=== PATIENT | female | born 1975 | race Caucasian/White ===

== ENCOUNTER 2025-05-25 16:02 | Outpatient (CLI) | payer OTHER, MEDICAID, SELFPAY ==
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
== END 2025-05-25 16:03 | disposition home or self-care (01) ==
LOC: RAD 16:03
PROVIDERS: PCP Nurse Practitioner; Visit Provider Nurse Practitioner
DX: M25.571 Pain in right ankle and joints of right foot (principal); S99.911A Unspecified injury of right ankle, initial encounter; V89.2XXA Person injured in unspecified motor-vehicle accident, traffic, initial encounter; R07.89 Other chest pain; M77.31 Calcaneal spur, right foot; M19.071 Primary osteoarthritis, right ankle and foot; M70.971 Unspecified soft tissue disorder related to use, overuse and pressure, right ankle and foot
CPT/HCPCS: 71101; 73610

== ENCOUNTER 2025-05-31 15:27 | Outpatient (CLI) | payer OTHER, MEDICAID, SELFPAY | END 2025-05-31 15:28 | disposition home or self-care (01) | LOC: SPT 15:28 | PROVIDERS: PCP Nurse Practitioner; Visit Provider Podiatrist Foot & Ankle Surgery | DX: Z46.89 Encounter for fitting and adjustment of other specified devices (principal); M79.671 Pain in right foot | CPT/HCPCS: L4361 ==

== ENCOUNTER 2025-06-07 15:57 | Outpatient (CLI) | payer OTHER, MEDICAID, SELFPAY ==
--- NOTE | 2025-06-07 16:30 | CT_ITS ---
WS: [id number] CT RIGHT ANKLE, NONCONTRAST HISTORY: rule out stress fracture Technique: All CT scans at [facility] use at least one of these dose optimization techniques: automated exposure control; mA and/or kV adjustment per patient size (includes targeted exams where dose is matched to clinical indication); or iterative reconstruction. DLP: 134.01 mGy.cm COMPARISON: Radiograph 05/25/2025 No acute fractures identified at the ankle. Normal alignment of the tibiotalar joint. No osteochondral lesion along the talar dome. No widening of the ankle mortise. Interosseous distance is normal. Moderate size enthesopathy at the distal Achilles tendon attachment. There is also some blurring at the plantar aponeurosis measuring up to 9.4 mm. Subtalar joint appears appropriate. Degenerative osteophytosis in the midfoot. Normal tarsometatarsal alignment. No joint effusion or soft tissue edema. CT/CT ankle RT wo con* [id number] IMPRESSION: 1. No acute RIGHT ankle fracture. 2. Achilles enthesopathy. 3. Focal osteophyte at the plantar aponeurosis measures 9.4 mm. 4. 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 5. No malalignment or edema.
== END 2025-06-07 15:58 | disposition home or self-care (01) ==
LOC: RAD 15:57
PROVIDERS: PCP Nurse Practitioner; Visit Provider Podiatrist Foot & Ankle Surgery
DX: M79.671 Pain in right foot (principal); M76.61 Achilles tendinitis, right leg; M25.761 Osteophyte, right knee; M19.071 Primary osteoarthritis, right ankle and foot
CPT/HCPCS: 73700